=== PATIENT | female | born 1975 | race Two or more races ===

== ENCOUNTER 2021-02-24 11:00 | Inpatient (IN) | payer OTHER ==
[~2021-02-24] VITALS: Ht 172.7 cm; Wt 59.0 kg
[2021-02-24] MEDS ORDERED: AYGESTIN5 MG PO (14:22)
[2021-03-03] MEDS ORDERED: LUPRON DEPOT3.75 M1 (16:16)
[2021-03-07] MEDS ORDERED: HYOSCYAMINE0.125 M1 SL (13:45)
[2021-03-07] MEDS ORDERED: PANTOPRAZOLE SO40 MG PO (13:46)
[2021-03-07] MEDS ORDERED: ULTRACET PO (13:46)
== END 2021-03-07 16:53 | disposition home or self-care (01) | DRG 331 ==
LOC: O/R 03-03 05:40 → OB/GYN 03-03 11:00
PROVIDERS: Surgery; ADMIT Obstetrics & Gynecology Gynecologic Oncology; ATTEND Obstetrics & Gynecology Gynecologic Oncology
PROC: 0UT90ZZ Resection of Uterus, Open Approach (ICD-10-PCS; 2021-03-03)
PROC: 0UB70ZZ Excision of Bilateral Fallopian Tubes, Open Approach (ICD-10-PCS; 2021-03-03)
PROC: 0DBN0ZZ Excision of Sigmoid Colon, Open Approach (ICD-10-PCS; principal; 2021-03-03 14:30)
PROC: 0DBP0ZZ Excision of Rectum, Open Approach (ICD-10-PCS; 2021-03-03 14:30)
DX: N80.5 Endometriosis of intestine (principal); N80.4 Endometriosis of rectovaginal septum and vagina; N80.0 Endometriosis of uterus; D25.1 Intramural leiomyoma of uterus; Z53.31 Laparoscopic surgical procedure converted to open procedure